=== PATIENT | female | born 2000 | race Caucasian/White ===

== ENCOUNTER 2021-12-25 14:20 | Emergency (ER) | payer BC, SELFPAY ==
[2021-12-25 14:35] VITALS: BP 120/79; PULSE 108; RESP 18; TEMP 37.1; O2SAT 100
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
== END 2021-12-25 15:50 | disposition left against medical advice (07) ==
LOC: ANHED 15:14
PROVIDERS: Emergency Provider Emergency Medicine
DX: Z04.89 Encounter for examination and observation for other specified reasons (principal)
CPT/HCPCS: 99281